=== PATIENT | female | born 1950 | race Caucasian/White ===

== ENCOUNTER 2017-10-07 09:24 | Outpatient (CLI) | payer MEDICARE ==
[2017-10-07 10:38] LABS: Mean Corpuscular HGB CONC 33.8 g/dL (32.0-36.0); Mean Corpuscular Hemoglobin 31.4 pg (27.0-31.0); Mean Platelet Volume 8.6 fL (7.4-10.4); Platelet Count 187 thou/uL (130-400); Red Blood Cell (RBC) Count 4.44 mill/uL (4.20-5.40); White Blood Cell (WBC) Count 5.3 thou/uL (4.8-10.8)
[2017-10-07 10:54] LABS: Anion Gap 9 mmol/L (10-20); BUN (Urea Nitrogen) 24 mg/dL (9.8-20.1); Calc. Creatinine Clearance 0 mL/min (70-130); Calcium 9.5 mg/dL (7.8-10.44); Carbon Dioxide 27 mmol/L (23-31); Chloride 109 mmol/L (98-107); Estimated GFR-MDRD 70; Glucose 85 mg/dL (80-115); Potassium 3.8 mmol/L (3.5-5.1); Sodium 141 mmol/L (136-145)
--- NOTE | 2017-12-11 13:57 | EKG ---
Test Reason : Blood Pressure : / mmHG Vent. Rate : 063 BPM Atrial Rate : 063 BPM P-R Int : 142 ms QRS Dur : 100 ms QT Int : 424 ms P-R-T Axes : 076 065 082 degrees QTc Int : 433 ms Normal sinus rhythm Normal ECG No previous ECGs available Confirmed by ALEXIS CARTY MD ([id number]) on 12/11/2017 1:56:28 PM Referred By: TANIHSA Confirmed By:ALEXIS CARTY MD
== END 2017-10-07 09:25 | disposition home or self-care (01) ==
LOC: LABBT 09:24
PROVIDERS: ATTEND Orthopaedic Surgery
DX: Z01.818 Encounter for other preprocedural examination (principal); G56.01 Carpal tunnel syndrome, right upper limb; M19.031 Primary osteoarthritis, right wrist
CPT/HCPCS: 80048; 85027; 93005; 93010

== ENCOUNTER 2017-10-13 05:52 | Day surgery (SDC) | payer MEDICARE ==
[2017-10-07 09:38] VITALS: BMI 28.9
--- NOTE | 2017-10-12 08:48 | HP ---
DATE OF ADMISSION: 10/13/2017 HISTORY OF PRESENT ILLNESS: Patient is a 66-year-old left-handed female with greater than 1 year his tory of pain, numbness and tingling in her right hand without injury. Minimal relief with use of a s plint and anti-inflammatory medication. PAST MEDICAL HISTORY: The patient is otherwise in good health. PAST SURGICAL HISTORY: She has had previous gastric sleeve surgery. CURRENT MEDICATIONS: Include bupropion and potassium. ALLERGIES: She is allergic to CODEINE, ASPIRIN, MORPHINE, and PREDNISOLONE. FAMILY HISTORY: Otherwise unremarkable. SOCIAL HISTORY: Otherwise unremarkable. REVIEW OF SYSTEMS: Otherwise unremarkable. PHYSICAL EXAMINATION: GENERAL: Healthy female. HEENT: Unremarkable. NECK: Supple. CHEST: Clear. HEART: Regular rate and rhythm. ABDOMEN: Soft, nontender. PELVIC/RECTAL/BREAST: Exams are deferred. EXTREMITIES: Pertinent findings are related to the right wrist, there is some slight puffiness over the volar aspect of her wrist. There is no atrophy. There is questionable small ganglion in dorsal, which is nontender. There is tenderness over the median nerve. There is full range of motion. The re is pain with extremes of motion. There is normal strength. There is no instability. There is a negative Tinel sign and a negative Phalen's test. There is subjective numbness in the median nerve d istribution. Pulses are 2+. Nerve conduction studies performed by Dr. Levine are positive for right c arpal tunnel syndrome. X-RAY FINDINGS: X-rays of the right wrist reveal degenerative changes most marked at the distal pole of the scaphoid and scattered areas of chondrocalcinosis. IMPRESSION: 1. Carpal tunnel syndrome, right wrist. 2. Degenerative arthritis, right wrist. PLAN: Endoscopic possible open right carpal tunnel release. The nature of the surgery, length of re covery, and potential complications such as infection, loss of motion, incomplete relief, persistent pain from arthritis, nerve injury, recurrence, and need for additional treatment or repeat surgery cheema ve been discussed in detail.
[2017-10-13] MEDS ORDERED: Scopolamine 1.5 mg/72 hour Patch ONE (06:43)
[2017-10-13] MEDS ORDERED: Lidocaine 1% w/Epinephrine 1:200K 30 ML VIAL ONE (06:58)
[2017-10-13] MEDS ORDERED: Bupivacaine 0.5% 10 ML VIAL ONE (06:58)
[2017-10-13] MEDS ORDERED: Lidocaine 1% (PF) 30 ML VIAL ONE (06:58)
[2017-10-13] MEDS ORDERED: CEFAZOLIN/Water 2 GM/20 ML SYRINGE ONE (07:25)
--- NOTE | 2017-10-13 13:42 | OP ---
DATE OF PROCEDURE: 10/13/2017 SURGEON: Christ Hamilton M.D. ANESTHESIA: Local plus TIVA. PREOPERATIVE DIAGNOSIS: Right carpal tunnel syndrome. POSTOPERATIVE DIAGNOSIS: Right carpal tunnel syndrome. PROCEDURE: Right endoscopic carpal tunnel release. NARRATIVE REPORT: After satisfactory anesthesia was induced in supine position, the patient was prep ped and draped in the routine manner. A field block was accomplished with 1% plain lidocaine. The r ight arm was elevated and exsanguinated with an Esmarch bandage, and the tourniquet inflated to 250 m mHg. A 2-cm transverse incision was made in the proximal wrist flexion crease, carried down to subcu taneous tissues. Bleeding points were controlled with Bovie cautery. Using sharp and blunt dissecti on, a distally deep forearm fascia was developed and retracted distally. Palmaris longus tendo n was retracted radially. Proximal edge of the deep forearm fascia was split under direct visualizat ion with small scissors to make sure there was no proximal impingement of the median nerve. Synovium elevator was introduced beneath the transverse carpal ligament and the synovium cleaned from the und ersurface. Carpal tunnel dilators were inserted. The 3M Prem endoscopic carpal tunnel system was in troduced beneath the transverse carpal ligament in line with the ring finger. The distal edge of the incision was easily identified and then divided in a distal to proximal direction by pulling the tri gger engaging the knife and withdrawing the scope proximally. This was done in several stages to make sure there was complete division of the transverse carpal ligament, which was documented ____ _. After withdrawing the scope, a carpal tunnel dilator could be inserted into the carpal tunnel and there was markedly improved passage, subcutaneous position of the instrument. The scope was reintro duced into the carpal tunnel. There was wide separation of the 2 leaves of the transverse carpal lig ament. The tourniquet was deflated after 7 minutes. There was no excessive bleeding and the scope w as withdrawn. The wound was thoroughly irrigated, then closed with running subcuticular 3-0 nylon. A sterile dressing was applied and the patient immobilized in a Velcro wrist splint. She was awakene d, taken to the operating room in stable condition. There were no apparent intraoperative complicati ons. The estimated blood loss was negligible. The patient will be discharged home in satisfactory condition. She was instructed on ice, elevation, and given written wound care instructions. She was given a prescription for tramadol for pain, 50 m g, 24 tablets with 1 refill. She will be rechecked in my office in approximately 10 days or sooner i f there are any problems prior to that time.
== END 2017-10-13 09:10 | disposition home or self-care (01) ==
LOC: SDC 05:52
PROVIDERS: ATTEND Orthopaedic Surgery
PROC: 01N54ZZ Release Median Nerve, Percutaneous Endoscopic Approach (ICD-10-PCS; principal; 2017-10-13)
DX: G56.01 Carpal tunnel syndrome, right upper limb (principal); Z79.899 Other long term (current) drug therapy; Z88.5 Allergy status to narcotic agent; Z88.6 Allergy status to analgesic agent; Z88.8 Allergy status to other drugs, medicaments and biological substances; Z98.84 Bariatric surgery status; Z96.651 Presence of right artificial knee joint; Z90.710 Acquired absence of both cervix and uterus
CPT/HCPCS: J2001; J3490

== ENCOUNTER 2018-03-06 17:03 | Emergency (ER) | payer MEDICARE ==
[2018-03-06] MEDS ORDERED: Adacel (T-DAP) 0.5 ML VIAL ONE (17:23)
[2018-03-06] MEDS ORDERED: Lidocaine 1% w/Epinephrine 1:100K 30 ML VIAL ONE (17:26)
[2018-03-06] MEDS ORDERED: Bacitracin Zinc 1 Packet ONE (17:39)
[2018-03-06] MEDS ORDERED: Acetaminophen 500 MG TAB ONE ×2 (17:59)
--- NOTE | 2018-03-06 18:06 | CT ---
CT BRAIN WITHOUT IV CONTRAST: HISTORY: A 67-year-old female with a history of head injury. FINDINGS: Left posterior scalp injury. No focal mass or midline shift. No intraaxial or extraaxial hemorrhage . Sinuses and mastoids are clear. IMPRESSION: No significant acute intracranial process. No mass or bleed. POS: [facility]
== END 2018-03-06 18:41 | disposition home or self-care (01) ==
LOC: SCSER 17:03
DX: S01.01XA Laceration without foreign body of scalp, initial encounter (principal); F41.9 Anxiety disorder, unspecified; Z79.899 Other long term (current) drug therapy; W22.8XXA Striking against or struck by other objects, initial encounter
CPT/HCPCS: 70450; 90471; 90715; J2001

== ENCOUNTER 2018-09-29 16:17 | Emergency (ER) | payer MEDICARE ==
--- NOTE | 2018-09-29 17:40 | RAD ---
2 VIEWS CHEST: Date: 09/29/18 HISTORY: Fever and cough. FINDINGS: PA and lateral views of chest obtained. Images demonstrate a subtle area of possible air space opacity in the left upper lobe. This is not de finitive; however, there may be subtle suggestion of increased density on the plain film radiographs. I cannot exclude the possibility of a developing left upper lobe pneumonia or mass. The right lung i s well aerated. No evidence of pneumothorax seen. Follow-up films to radiographic resolution recommen ded. IMPRESSION: Possible subtle area of air space opacity in the left upper lobe. This may represent a subtle area of pneumonia. POS: [facility]
== END 2018-09-29 17:50 | disposition home or self-care (01) ==
LOC: SCSER 16:17
DX: J18.1 Lobar pneumonia, unspecified organism (principal); F41.9 Anxiety disorder, unspecified
CPT/HCPCS: 71046

== ENCOUNTER 2018-10-28 09:25 | Outpatient (CLI) | payer MEDICARE ==
[2018-10-28 10:44] LABS: Thyroid Stimulating Hormone 2.3632 uIU/mL (0.35-4.94)
--- NOTE | 2018-10-28 11:00 | RAD ---
PA AND LATERAL VIEWS CHEST: HISTORY: Bronchitis. FINDINGS: Comparison is made with the exam of 09/29/2018. The heart size is normal. The lungs are expanded without focal areas f consolidation, pneumothoraces , or pleural effusions. The patchy airspace disease in the left lung noted on the previous study has resolved in the interim. IMPRESSION: No evidence of acute cardiopulmonary process. POS: [facility]
[2018-10-28 11:01] LABS: Eosinophils 4 % (0-10); Hemoglobin 12.9 g/dL (12.0-16.0); Lymphocytes 49 % (21-51); MDiff Complete? YES; Mean Corpuscular HGB CONC 32.7 g/dL (32.0-36.0); Mean Corpuscular Hemoglobin 30.1 pg (27.0-31.0); Mean Corpuscular Volume 91.8 fL (78.0-98.0); Mean Platelet Volume 8.3 fL (7.4-10.4); Monocytes 6 % (0-10); Neutrophil 40 % (42-75); Platelet Count 134 thou/uL (130-400); Platelet Morphology Comment Appears Adequate; RBC Distribution Width 13.3 % (11.5-14.5); RBC Morphology Normal; Red Blood Cell (RBC) Count 4.29 mill/uL (4.20-5.40); White Blood Cell (WBC) Count 4.8 thou/uL (4.8-10.8)
== END 2018-10-28 09:26 | disposition home or self-care (01) ==
LOC: SCSRAD 09:25
PROVIDERS: ATTEND Family Medicine
DX: J40 Bronchitis, not specified as acute or chronic (principal); R53.83 Other fatigue
CPT/HCPCS: 36415; 71046; 84443; 84481; 85025

== ENCOUNTER 2018-11-21 16:01 | Emergency (ER) | payer MEDICARE ==
--- NOTE | 2018-11-21 16:33 | RAD ---
FXR Toe(s) Rt Min 2 View: 11/21/2018 4:10 PM CLINICAL INDICATION: Injury, pain COMPARISON: None. FINDINGS: Fracture:Fracture is present involving the lateral base of great toe distal phalanx with slight displ acement and intra-articular involvement. Arthropathy:Mild arthropathy. Incidental findings:None of significance. IMPRESSION: 1. Slightly displaced intra-articular fracture at lateral base of great toe distal phalanx.
== END 2018-11-21 16:43 | disposition home or self-care (01) ==
LOC: SCSER 16:01
DX: S92.421A Displaced fracture of distal phalanx of right great toe, initial encounter for closed fracture (principal); F41.9 Anxiety disorder, unspecified; Z79.899 Other long term (current) drug therapy; W20.8XXA Other cause of strike by thrown, projected or falling object, initial encounter

== ENCOUNTER 2019-06-18 13:15 | Emergency (ER) | payer MEDICARE ==
--- NOTE | 2019-06-18 16:16 | RAD ---
LEFT KNEE FOUR VIEWS: History: Injury. Left knee pain. FINDINGS/IMPRESSION: No acute fracture or dislocation is identified. POS: [facility]
--- NOTE | 2019-06-18 16:18 | RAD ---
LEFT FEMUR TWO VIEWS: History: Injury. Left thigh pain. Knee pain. FINDINGS/IMPRESSION: The left femur appears intact. POS: [facility]
--- NOTE | 2019-06-18 16:20 | RAD ---
RIGHT FEMUR TWO VIEWS: History: Injury. Right thigh pain. FINDINGS: The right femur appears intact. Uni-compartmental prosthesis is noted in the medial tibiofemoral join t space. POS: [facility]
[2019-06-18] MEDS ORDERED: HYDROcodone/Acetaminophen 5/325 mg Tablet ONE (17:04)
== END 2019-06-18 16:07 | disposition home or self-care (01) ==
LOC: SCSER 13:15
DX: S70.12XA Contusion of left thigh, initial encounter (principal); E11.9 Type 2 diabetes mellitus without complications; F41.9 Anxiety disorder, unspecified; Z79.899 Other long term (current) drug therapy; W10.9XXA Fall (on) (from) unspecified stairs and steps, initial encounter; Y92.511 Restaurant or cafe as the place of occurrence of the external cause
CPT/HCPCS: 36416

== ENCOUNTER 2020-02-16 06:28 | Outpatient (CLI) | payer MEDICARE ==
[2020-02-16 18:01] LABS: #Basophils 0.1 thou/uL (0.0-0.2); #Eosinphils 0.2 thou/uL (0.0-0.7); #Lymphocytes 2.1 thou/uL (1.20-3.40); #Monocytes 0.4 thou/uL (0.11-0.59); %Basophils 0.9 % (0.0-1.0); %Lymphocytes 36.8 % (21.0-51.0); %Monocytes 7.2 % (0.0-10.0); %Neutrophils 52.1 % (42.0-75.0); Hemoglobin 13.4 g/dL (12.0-16.0); Mean Corpuscular HGB CONC 33.1 g/dL (32.0-36.0); Mean Corpuscular Hemoglobin 30.1 pg (27.0-31.0); Mean Platelet Volume 8.5 fL (7.4-10.4); Platelet Count 195 thou/uL (130-400); RBC Distribution Width 12.2 % (11.5-14.5); Red Blood Cell (RBC) Count 4.43 mill/uL (4.20-5.40); White Blood Cell (WBC) Count 5.8 thou/uL (4.8-10.8)
== END 2020-02-16 06:29 | disposition home or self-care (01) ==
LOC: LABBT 06:28
PROVIDERS: ATTEND Obstetrics & Gynecology
DX: Z01.812 Encounter for preprocedural laboratory examination (principal)
CPT/HCPCS: 85025

== ENCOUNTER 2020-02-19 09:42 | Day surgery (SDC) | payer MEDICARE, OTHER ==
[2020-02-15 10:27] VITALS: BMI 32.9
[2020-02-17 13:07] LABS: SARS-CoV-2 MS2 Positive; SARS-CoV-2 N Gene Negative; SARS-CoV-2 S Gene Negative; SARS-CoV-2 orf1ab Negative
--- NOTE | 2020-02-19 10:03 | HP ---
Scheduled for surgery 02/18. HISTORY OF PRESENT ILLNESS: Ms. Fajardo is a 69-year-old white female with history of previous hysterectomy many years prior for endometriosis. She was initially referred by Dr. Eunice Delgado from Urology for vaginal prolapse symptoms. She has a history of mixed incontinence and is on pelvic floor therapy currently. She has some urge symptoms and these appear to be improving. She has difficulty getting stool out at times and has to splint the vagina. For these problems, she was evaluated in my office in October 2019. Findings were consistent with grade 2 cystocele and grade 3 rectocele. PAST MEDICAL AND SURGICAL HISTORY: Significant for previous bariatric operative procedures, section, hysterectomy, and surgery on her knee. She has some generalized anxiety disorder. ALLERGIES: SHE HAS ALLERGIES TO ASPIRIN AND SOME ENVIRONMENTAL ALLERGIES. SHE REPORTS SOME NAUSEA ASSOCIATED WITH NARCOTIC USE. CURRENT MEDICATIONS: 1. Bupropion 300 mg XL daily. 2. Sertraline 25 mg tablet daily. SOCIAL HISTORY: Nonsmoker. No excessive alcohol use. FAMILY HISTORY: Significant for breast cancer in her mother and her brother had leukemia. PHYSICAL EXAMINATION: VITAL SIGNS: Height 5 feet 2 inches, weight 177 pounds, BMI 32.4. Blood pressure 120/72, pulse 74, O2 saturation on room air 98%, respirations 18. HEENT: Within normal limits. CHEST: Clear to auscultation. HEART: Regular rate and rhythm. S1 and S2 heart sounds with no murmurs, rubs, or gallops. ABDOMEN: Soft, nontender, nondistended with no palpable masses. PELVIC: Shows the vulva and vagina to have no lesions. She does have a grade 2 cystocele and grade 3 rectocele with vaginal vault appears to be adequately supported. Cervix and uterus are surgically absent. Adnexa were nontender with no masses. ASSESSMENT: This is a 69-year-old white female with symptomatic grade 2 cystocele and rectocele. PLAN: Plan is to proceed with anterior and posterior repair scheduled for 02/18. Risks of the operation have been discussed in detail and she is set for surgery. Job ID: [id number]
[2020-02-19] MEDS ORDERED: Midazolam HCl 2 mg/2 ml Vial ONE (11:45)
[2020-02-19] MEDS ORDERED: Fentanyl 100 MCG/2 ML VIAL ONE ×3 (11:58→14:32)
[2020-02-19] MEDS ORDERED: Dexamethasone 20 MG/5 ML VIAL ONE (12:05)
[2020-02-19] MEDS ORDERED: PHENYLEPHRINE-NS 100 MCG/ML 10 ML SYRINGE ONE (12:05)
[2020-02-19] MEDS ORDERED: Ondansetron PF 4 MG/2 ML Vial ONE (12:05)
[2020-02-19] MEDS ORDERED: Lidocaine 1% PF 5 ML VIAL ONE (12:05)
[2020-02-19] MEDS ORDERED: EPHEDRINE 25 MG/5 ML SYRINGE ONE (12:05)
[2020-02-19] MEDS ORDERED: PROPOFOL 200 MG/20 ML VIAL ONE (12:05)
[2020-02-19] MEDS ORDERED: Lidocaine 1% w/Epinephrine 1:100K 20 ML VIAL ONE (12:23)
[2020-02-19] MEDS ORDERED: traMADol HCl 50 MG TAB PO PRN (13:17)
[2020-02-19] MEDS ORDERED: Simethicone Chewable 80 MG TAB PO PRN (13:17)
[2020-02-19] MEDS ORDERED: diphenhydrAMINE 25 MG CAP PO PRN (13:17)
[2020-02-19] MEDS ORDERED: Promethazine HCl 25 MG/ML VIAL IM PRN (13:17)
[2020-02-19] MEDS ORDERED: Ondansetron PF 4 MG/2 ML Vial IVP PRN (13:17)
--- NOTE | 2020-02-19 15:41 | OP ---
DATE OF PROCEDURE: 02/19/2020 PREOPERATIVE DIAGNOSES: 1. Grade 2 cystocele and grade 3 rectocele. 2. Prior hysterectomy. POSTOPERATIVE DIAGNOSES: 1. Grade 2 cystocele and grade 3 rectocele. 2. Prior hysterectomy. PROCEDURES PERFORMED: Anterior and posterior repair. TUBE WASHER SURGEON: Alicja Ritchie PA-C ANESTHESIA: General endotracheal. ESTIMATED BLOOD LOSS: 10 mL. COMPLICATIONS: None. COUNTS: Correct x2. ANTIBIOTICS: 2 g Ancef on-call to the OR. FINDINGS: 1. Postoperatively, clear urine was noted in the Gallego catheter. 2. The patient had predominantly rectocele defect and minimal cystocele, which both appeared to have adequate reduction in the hernias. 3. No evidence of suture placement in the rectum postprocedure. DISPOSITION: Recovery room, stable. DESCRIPTION OF PROCEDURE: The patient previously received informed consent in regard to surgery. She was taken back to the operating room, where she received a general endotracheal anesthetic agent without complications. She was then placed in the dorsal lithotomy position with the use of Prosper stirrups and prepped and draped in the usual sterile fashion. Gallego catheter was placed at this time. A weighted speculum was placed in the posterior vagina. The vaginal cuff was grasped with 2 Allis clamps at 3 o'clock and 9 o'clock position. The anterior vaginal mucosa was infiltrated with 1% lidocaine with epinephrine. Metzenbaum scissors were then utilized to make a vertical incision approximately 2 cm from the urethral meatus and the edges of the mucosa were grasped serially with Allis clamps. I then dissected the cystocele defect both sharply and bluntly reducing the defect in its entirety. Next, a 2-0 Vicryl suture in [id number] stitch fashion was utilized to plicate the endopelvic fascia, reducing the cystocele defect. Two of these throws were placed. The anterior vaginal mucosa was then closed with running [id number] suture, securing hemostasis. Attention was then turned to the posterior vaginal wall defect. Two Allis clamps were then placed at the vaginal introitus at the 4 o'clock and 8 o'clock position. The perineal body was well preserved. The posterior vaginal mucosa was infiltrated with 1% lidocaine with epinephrine up to the cuff line. A vertical midline incision was made in the posterior vaginal mucosa with Metzenbaum scissors. This was carried up to the vaginal cuff line. The edges of the vaginal mucosa were grasped interveningly with Allis clamps to provide countertraction and dissected the larger rectocele defect both sharply and bluntly in its entirety. We then placed a tag suture up in the posterior vaginal mucosa to later aid in closure of the mucosa. This was tagged with a hemostatic. The endopelvic fascia defects were noted in the upper most cephalad positions of the posterior vagina and these were grasped with Allis clamps. This allowed for me to then plicate the endopelvic fascia in the midline with [id number] stitch throws of 0 Vicryl suture. My golf player assistant had placed a Mayda blade on the rectum and pulling this downwards from the operative site. Serial placements of endopelvic fascia 0 Vicryl sutures were placed plicating the endopelvic fascia in the midline working up towards the introitus, closing off the rectocele defect. Once this had been adequately reduced, the posterior vaginal mucosa was then closed with 2-0 Vicryl sutures. [id number] stitch fashion was carried out with taking the midline endopelvic fascia to rid the space. Once this had been completed, a moistened Kerlix was placed in the vaginal vault for pressure and packing and a rectal exam was performed showing no evidence of suture placement in the rectum. The patient was awakened from anesthesia, transferred to recovery room in stable condition. Job ID: [id number]
[2020-02-19] MEDS: Morphine 2 MG/ML SYRINGE SLOW IVP PRN ×2 (16:05→23:57)
[2020-02-19] MEDS: Acetaminophen 325 MG TAB PO PRN ×3 (16:05→23:54)
[2020-02-19] MEDS: Docusate 100 MG CAP PO SCH (19:48)
[2020-02-20] MEDS: traMADol HCl 50 MG TAB PO PRN ×2 (04:04→10:03)
[2020-02-20 05:57] LABS: Hemoglobin 12.5 g/dL (12.0-16.0); Mean Corpuscular HGB CONC 32.3 g/dL (32.0-36.0); Mean Corpuscular Hemoglobin 29.5 pg (27.0-31.0); Mean Corpuscular Volume 91.2 fL (78.0-98.0); Mean Platelet Volume 8.8 fL (7.4-10.4); Platelet Count 168 thou/uL (130-400); RBC Distribution Width 12.1 % (11.5-14.5); Red Blood Cell (RBC) Count 4.23 mill/uL (4.20-5.40); White Blood Cell (WBC) Count 6.6 thou/uL (4.8-10.8)
[2020-02-20] MEDS: Docusate 100 MG CAP PO SCH (08:59)
[2020-02-20] MEDS ORDERED: Multivit, Therapeutic 1 TAB PO SCH (09:00)
[2020-02-20] MEDS ORDERED: GLUCOS SUL PO SCH (09:00)
[2020-02-20] MEDS ORDERED: Bupropion 150 MG XL TAB PO SCH (09:00)
[2020-02-20] MEDS ORDERED: Prevnar 13-Val Conj/PF 0.5 ML SYRINGE IM ONE (09:00)
[2020-02-20] MEDS ORDERED: Ascorbic Acid 500 mg Chewable Tablet PO SCH (09:00)
[2020-02-20] MEDS ORDERED: Calcium Carbonate 500 MG TAB PO SCH (09:00)
[2020-02-20] MEDS ORDERED: [UNRECOGNIZED DRUG - OTHER] PO SCH (09:00)
[2020-02-20] MEDS: Acetaminophen 325 MG TAB PO PRN ×2 (09:06→15:25)
[2020-02-20 13:15] VITALS: BP 129/72; TEMP 98.1
--- NOTE | 2020-02-20 14:31 | PRG ---
DATE OF SERVICE: 02/20/2020 SUBJECTIVE: The patient states her pelvic pain and perineal pain are much improved and relieved after removal of the vaginal pack. She is tolerating liquids well and our pain control is adequate on tramadol and Tylenol. OBJECTIVE: VITAL SIGNS: Stable. Current vitals show a temperature 97.7, pulse 66, respirations 16, blood pressure 114/60. GENERAL: Hematocrit postop day #1 is 38.6%. Gallego catheter has been removed and urine output over the shift was 1300 mL of clear urine. PERINEUM: Perineal exam shows intact perineum and suture line with no active bleeding. EXTREMITIES: Nontender. ASSESSMENT AND PLAN: This is postop day #1 from anterior and posterior repair. The patient is progressing well. Gallego catheter has been removed. We will check a postvoid residual via bladder scan to make sure the patient has no urinary retention. If she continues to progress well, anticipate discharge later today and has discharge medications for pain, tramadol 50 mg q.6 hours p.r.n. pain and byfh-inj-wjxuxet Tylenol. I discussed bowel regimen to avoid constipation with daily stool softeners, fiber supplement, and also p.r.n. Milk of Magnesia. She has a scheduled followup in 4 weeks. Job ID: [id number]
== END 2020-02-20 15:52 | disposition home or self-care (01) ==
LOC: SDC 09:42 → 3SW 15:03 → SDC 02-20 15:52
PROVIDERS: ATTEND Obstetrics & Gynecology
PROC: 0JQC0ZZ Repair Pelvic Region Subcutaneous Tissue and Fascia, Open Approach (ICD-10-PCS; principal; 2020-02-19)
PROC: 0JQC0ZZ Repair Pelvic Region Subcutaneous Tissue and Fascia, Open Approach (ICD-10-PCS; 2020-02-19)
DX: N81.10 Cystocele, unspecified (principal); N81.6 Rectocele; F41.1 Generalized anxiety disorder; G47.30 Sleep apnea, unspecified; J45.909 Unspecified asthma, uncomplicated; N39.46 Mixed incontinence; Z79.899 Other long term (current) drug therapy; Z88.6 Allergy status to analgesic agent; Z88.8 Allergy status to other drugs, medicaments and biological substances; Z90.710 Acquired absence of both cervix and uterus; Z98.84 Bariatric surgery status
CPT/HCPCS: 57260; 85027; 86850; 86900; 86901; U0003; 36415; 87635; J0690; J1100; J2001; J2250; J2270; J2405; J2704; J3010